=== PATIENT | female | born 1960 | race Caucasian/White ===

== ENCOUNTER 2019-04-16 10:47 | Emergency (ER) | payer OTHER ==
[~2019-04-16] VITALS: Ht 162.6 cm; Wt 61.2 kg
--- OUTSIDE RECORDS SUMMARY | 2019-04-16 10:50 | XMS REPORT | Clinical Summary ---
Author Author [facility] Organization [facility] Address Unknown Phone Unavailable Care Team Providers [facility] Name Role Phone Mary Uriostegui MD PCP Allergies No Known Allergies Medications End Date Status Medication Sig Dispensed Refills Start Date Active citalopram (CeleXA) 40 MG Take 40 mg by 0 tablet mouth daily. Active pantoprazole (PROTONIX) Take 40 mg by 0 40 MG EC tablet mouth daily. Active fenofibric acid Take 130 mg 0 (FIBRICOR) 105 mg tablet by mouth daily. Active BREO ELLIPTA 200-25 INHALE ONE 12 mcg/dose blister with PUFF PO ONCE 9 device powder for DAILY inhalation Active ibuprofen (ADVIL,MOTRIN) Take 1 tablet 60 tablet 0 600 MG tablet (600 mg 9 total) by mouth 3 (three) times a day. For 2 weeks. Then three times daily as needed. 04/23/2019 Active HYDROcodone-acetaminophen 1-2 tab by 30 tablet 0 (NORCO) 5-325 mg per mouth every 4 9 tabletIndications: hours as Complete tear of left needed for rotator cuff pain. Max 6/day 04/27/2019 Active acetaminophen-codeine Take 1-2 30 tablet 0 (TYLENOL WITH CODEINE #3) tablets by 9 300-30 mg per tablet mouth every 8 (eight) hours as needed for moderate pain for up to 15 days. 06/29/2018 Discontinued ibuprofen (ADVIL,MOTRIN) Take 800 mg 0 800 MG tablet by mouth every 6 (six) hours as needed for mild pain. 07/02/2018 Discontinued HYDROcodone-acetaminophen Take 1 tablet 0 (NORCO) 10-325 mg per by mouth tablet every 6 (six) hours as needed for moderate pain. 07/02/2018 oxyCODone-acetaminophen 1-2 tablet PO 45 tablet 0 (PERCOCET) 7.5-325 mg per q 4 hours PRN 8 tablet severe pain after large rotator cuff tear. 07/16/2018 HYDROcodone-acetaminophen 1-2 tablets 60 tablet 0 (NORCO) 5-325 mg per every 6 hours 8 tablet by mouth as needed for severe pain. 08/19/2018 HYDROcodone-acetaminophen Take 1 tablet 45 tablet 0 (NORCO) 5-325 mg per by mouth 8 tablet every 4 (four) hours as needed for moderate pain for up to 30 days. Max Daily Amount: 6 tablets 03/25/2019 Discontinued HYDROcodone-acetaminophen TK 1 T PO TID 0 (NORCO) 10-325 mg per PRN P 9 tablet 04/08/2019 oxyCODone-acetaminophen 1-2 tablets 30 tablet 0 (PERCOCET) 5-325 mg per every 4 hours 9 tablet as needed for severe pain 04/06/2019 Discontinued HYDROcodone-acetaminophen 1-2 tab by 30 tablet 0 (NORCO) 5-325 mg per mouth every 4 9 tabletIndications: hours as Complete tear of left needed for rotator cuff pain. Max 6/day Active Problems Problem Noted Date Complete tear of left rotator cuff 04/08/2019 Acute pain of right knee 11/27/2018 History of arthroscopic surgery of shoulder 08/12/2018 Rupture of right proximal biceps tendon 06/04/2018 Impingement syndrome of right shoulder 06/04/2018 Complete tear of right rotator cuff 06/03/2018 Encounters Care Team Description Date Type Specialty Luciano Saavedra MA 04/12/2019 Telephone Orthopedic Surgery Luciano Saavedra MA 04/12/2019 Orders Only Orthopedic Surgery Anna Banks FNP Complete tear of left rotator cuff (Primary Dx) 04/08/2019 Office Visit Orthopedic Surgery Luciano Saavedra MA 04/07/2019 Telephone Orthopedic Surgery John Knowles Jr., MD Complete tear of left rotator cuff 04/06/2019 Orders Only Orthopedic Surgery Luciano Saavedra MA 03/29/2019 Telephone Orthopedic Surgery John Knowles Jr., MD Complete tear of left rotator cuff (Primary Dx) 03/29/2019 Orders Only Orthopedic Surgery Luciano Saavedra MA 03/28/2019 Telephone Orthopedic Surgery John Knowles Jr., MD ARTHROSCOPY, LEFT SHOULDER WITH REPAIR, ROTATOR CUFF, BICEP TENODESIS, labral DEBRIDEMENT, SAD 03/25/2019 Surgery Good Chi MD 03/25/2019 Anesthesia Event John Knowles Jr., MD 03/25/2019 Hospital Encounter John Knowles Jr., MD 03/25/2019 Refill Orthopedic Surgery John Knowles Jr., MD Complete tear of left rotator cuff (Primary Dx); Tendinopathy of left biceps tendon 03/15/2019 Office Visit Orthopedic Surgery John Knowles Jr., MD Impingement syndrome of left shoulder 03/10/2019 Hospital Radiology Encounter John Knowles Jr., MD Left shoulder pain, unspecified chronicity (Primary Dx); Impingement syndrome of left shoulder 03/02/2019 Office Visit Orthopedic Surgery Hasmukh Chavez MD 02/28/2019 Hospital Radiology Encounter Hasmukh Chavez MD 02/28/2019 Hospital Radiology Encounter Hasmukh Chavez MD Osteoarthritis of lumbar spine, unspecified spinal osteoarthritis complication status (Primary Dx); Hip flexor tendinitis, right 02/28/2019 Office Visit Orthopedic Surgery Melina Alvarez MA Pain (Primary Dx) 02/24/2019 Orders Only Orthopedic Surgery John Knowles Jr., MD Complete tear of right rotator cuff (Primary Dx); Acute pain of right knee 11/17/2018 Office Visit Orthopedic Surgery John Knowles Jr., MD Rupture of right proximal biceps tendon, subsequent encounter (Primary Dx); Complete tear of right rotator cuff; History of arthroscopic surgery of shoulder 09/22/2018 Office Visit Orthopedic Surgery John Knowles Jr., MD Tear of right rotator cuff, unspecified tear extent (Primary Dx); 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, subsequent encounter 09/07/2018 Transcribe Physical Therapy Orders John Knowles Jr., MD 08/17/2018 Telephone Orthopedic Surgery John Knowles Jr., MD Palafox-Chua, Erica Renee, FNP History of arthroscopic surgery of shoulder (Primary Dx) 08/12/2018 Office Visit Orthopedic Surgery QuentinRogeliomark, KATERINA 07/20/2018 Telephone Orthopedic Surgery Quentin Luciano, KATERINA 07/20/2018 Orders Only Orthopedic Surgery John Knowles Jr., MD 07/20/2018 Orders Only Orthopedic Surgery Saavedra Luciano, KATERINA 07/19/2018 Telephone Orthopedic Surgery Jocelyn Anna ChristyCLARK Tear of right rotator cuff, unspecified tear extent (Primary Dx); Amputation of right upper extremity at shoulder, subsequent encounter 07/16/2018 Office Visit Orthopedic Surgery Rogelio Saavedramark, KATERINA 07/13/2018 Telephone Orthopedic Surgery Saavedra Luciano, KATERINA 07/07/2018 Telephone Orthopedic Surgery Quentin Luciano, KATERINA 07/06/2018 Telephone Orthopedic Surgery SaavedraRogeliomark, KATERINA 07/05/2018 Telephone Orthopedic Surgery Jenn Escobar MD 07/02/2018 Anesthesia Event John Knowles Jr., MD RIGHT SHOULDER ARTHROSCOPY, ROTATOR CUFF REPAIR, DEBRIDEMENT, SUBACROMIAL DECOMPRESSION, [place] 07/02/2018 Surgery John Knowles Jr., MD 07/02/2018 Hospital Encounter Lottie Delaney MA 06/01/2018 Telephone Orthopedic Surgery Polo Orona MD Arthritis of carpometacarpal (CMC) joint of left thumb (Primary Dx) 05/31/2018 Office Visit Ortho Sports Medicine Lottie Delaney MA 05/29/2018 Telephone Orthopedic Surgery Hasmukh Chavez MD 05/28/2018 Hospital Radiology Encounter Good Shetty MA Hand pain, left (Primary Dx) 05/28/2018 Orders Only Ortho Sports Medicine John Knowles Jr., MD Complete tear of right rotator cuff (Primary Dx); Impingement syndrome of right shoulder; Rupture of right proximal biceps tendon, initial encounter 05/26/2018 Office Visit Orthopedic Surgery Hasmukh Chavez MD Serrato, Juan Antonio Jr., MD Complete tear of right rotator cuff (Primary Dx); Impingement syndrome of shoulder, right; Biceps tendinitis of right upper extremity 05/26/2018 Office Visit Orthopedic Surgery Nicki Sage MA Right shoulder pain, unspecified chronicity (Primary Dx) 05/25/2018 Orders Only Orthopedic Surgery after 04/15/2018 Family History Medical History Relation Name Comments Cancer Father Atrial fibrillation Mother Heart disease Mother Relation Name Status Comments Father head and neck cancer Mother Alive Social History Date Tobacco Use Types Packs/Day Years Used Never Smoker Smokeless Tobacco: Never Used Alcohol Use Drinks/Week oz/Week Comments No Sex Assigned at Date Recorded Not on file Industry Job Start Date Occupation Not on file Not on file Not on file Travel End Travel History Travel Start No recent travel history available. Last Filed Vital Signs Time Taken Vital Sign Reading 04/08/2019 1:59 PM CDT Blood Pressure 133/67 04/08/2019 1:59 PM CDT Pulse 83 03/25/2019 12:47 PM CDT Temperature 36.8 C (98.3 F) 03/25/2019 1:30 PM CDT Respiratory Rate 15 03/25/2019 1:30 PM CDT Oxygen Saturation 92% - Inhaled Oxygen - Concentration 04/08/2019 1:59 PM CDT Weight 61.2 kg (135 lb) 04/08/2019 1:59 PM CDT Height 162.6 cm (5' 4") 04/08/2019 1:59 PM CDT Body Mass Index 23.17 Plan of Treatment Care Team Description Date Type Specialty John Knowles Jr., MD [address] [facility] [address] [place] [address] [phone] Antonietta Valente, PT 04/19/2019 Office Visit Physical Therapy Antonietta Valente, PT 04/21/2019 Office Visit Physical Therapy Elen Ibarra, CLAMPER 04/26/2019 Office Visit Physical Therapy Antonietta Valente, PT 04/28/2019 Office Visit Physical Therapy Antonietta Valente, PT 05/03/2019 Office Visit Physical Therapy John Knowles Jr., MD [address] [facility] [address] [place] [address] [phone] 05/04/2019 Office Visit Orthopedic Surgery Antonietta Valente, PT 05/05/2019 Office Visit Physical Therapy Antonietta Valente, PT 05/10/2019 Office Visit Physical Therapy Antonietta Valente, PT 05/12/2019 Office Visit Physical Therapy Antonietta Valente, PT 05/17/2019 Office Visit Physical Therapy Antonietta Valente, PT 05/19/2019 Office Visit Physical Therapy Antonietta Valente PT 05/24/2019 Office Visit Physical Therapy Health Maintenance Due Date Last Done Comments BREAST CANCER SCREENING 2008 COLONOSCOPY SCREENING 2008 SHINGLES VACCINES (#1) 2008 INFLUENZA VACCINE 05/12/2019 Implants Device Identifier Shelf Expiration Date Model / Serial / Lot Implanted Type Area Manufactur er 01/09/2021 [id number] / / [id number] Suture Holman Healix Knotless Br Orthopedic Right: Shoulder DEPUY Biocomposite 4.75mm - [id number] Trauma MITEK Implanted: 07/02/2018 (Quantity not Implants on file) 03/11/2021 [id number] / / [id number] Holman Sut Healix Advance Br W/ Orthopedic Right: Shoulder DEPUY Orthocord 4.5mm - [id number] Trauma MITEK Implanted: 07/02/2018 (Quantity not Implants on file) 03/11/2021 [id number] / / [id number] Holman Sut Healix Advance Br W/ Orthopedic Right: Shoulder DEPUY Orthocord 4.5mm - [id number] Trauma MITEK Implanted: 07/02/2018 (Quantity not Implants on file) 02/08/2021 [id number] / / [id number] Suture Holman Healix Knotless Br Orthopedic Right: Shoulder DEPUY Biocomposite 4.75mm - [id number] Trauma MITEK Implanted: 07/02/2018 (Quantity not Implants on file) 02/08/2021 [id number] / / [id number] Suture Holman [employer]ix Knotless Br Orthopedic Right: Shoulder DEPUY Biocomposite 4.75mm - [id number] Trauma MITEK Implanted: 07/02/2018 (Quantity not Implants on file) 10/11/2021 [id number] / / [id number] Suture Holman He[employer]ix Knotless Br Orthopedic Left: Shoulder DEPUY Biocomposite 4.75mm - [id number] Trauma MITEK Implanted: 03/25/2019 (Quantity not Implants on file) 09/10/2021 [id number] / / [id number] Holman Sut Healix Advance Br W/ Orthopedic Left: Shoulder DEPUY Orthocord 4.5mm - [id number] Trauma MITEK Implanted: 03/25/2019 (Quantity not Implants on file) 09/10/2021 [id number] / / [id number] Holman Sut Healix Advance Br W/ Orthopedic Left: Shoulder DEPUY Orthocord 4.5mm - [id number] Trauma MITEK Implanted: 03/25/2019 (Quantity not Implants on file) Procedures Comments Procedure Name Priority Date/Time Associated Diagnosis ARTHROSCOPY, SHOULDER 03/25/2019 Complete rotator cuff WITH REPAIR, ROTATOR 10:55 AM CDT tear CUFF, OPEN Glenoid labrum tear Biceps tendon tear Impingement syndrome of left shoulder Special Needs MITEK ANCHORS PROKNOTS BE[place] CHAIR,T-MA X AAKASH WITH MITEK NOTIFIED OF CASE ON 03/25 @1055..HJ [place] AN PERIPHERAL BLOCK Routine 03/25/2019 POST-OP PAIN 10:25 AM CDT Procedure Note - Good Chi MD - 03/25/2019 10:25 AM CDT Peripheral Block Date/Time: 03/25/2019 10:42 AM Performed by: Good Chi MD Authorized by: Good Chi MD Patient Location: Holding area Reason for Block: at surgeon's request, post-op pain management Staff: Anesthesio logist: Good Chi MD Performed by: Anesthesio logist Preprocedu re: patient identified , IV checked, site and side verified, risks and benefits discussed, procedure verified, surgical consent complete, patient position confirmed, monitors and equipment checked, pre-op evaluation complete, site marked and coagulatio n status reviewed Time Out Performed: 03/25/2019 10:34 AM Peripheral Nerve Block: Patient Position: Supine Prep: ChloraPrep Monitoring : Blood pressure monitoring , continuous pulse oximetry and heart rate Block Type: Interscale ne Laterality : Left Injection Technique: Single injection Procedures : nerve stimulator Local Infiltrati on (See MAR for details): Lidocaine Loss of Twitch: 0.4 mA Needle: Needle Length: 2 in Assessment : Injection Assessment : Intermitte nt aspiration during local anesthetic administra tion and no symptoms of intraneura l/intraven ous injection Paresthesi a Pain: None Heart Rate Change: No Slow Fractionat ed Injection: Yes Block outcome: No apparent complicati ons, patient comfortabl e and patient tolerated procedure well Medication s Administer ed Ropivacain e 0.5 % PF (mL), 15 mL ECG 12-LEAD STAT 03/25/2019 9:27 AM CDT MRI SHOULDER WO CONTRAST Routine 03/10/2019 Impingement syndrome of LEFT 11:25 AM CDT left shoulder XR SHOULDER 2+ VW LEFT Routine 03/02/2019 Left shoulder pain, 11:17 AM CDT unspecified chronicity [place] AN PERIPHERAL BLOCK Routine 07/02/2018 PROCEDURE FOR PAIN 10:34 AM CDT Procedure Note - Jenn Escobar MD - 07/02/2018 10:34 AM CDT Peripheral Block Performed by: JENN ESCOBAR Authorized by: JENN ESCOBAR Start Time: 07/02/2018 9:35 AM End Time: 07/02/2018 9:45 AM Reason for Block: at surgeon's request, post-op pain management , procedure for pain Staff: Anesthesio logist: JENN ESCOBAR Performed by: Anesthesio logiscassia Preprocedu re: patient identified , IV checked, site and side verified, risks and benefits discussed, procedure verified, surgical consent complete, patient position confirmed, monitors and equipment checked, pre-op evaluation complete and site marked Time Out Performed: 07/02/2018 9:40 AM Peripheral Nerve Block: Patient Position: Supine Prep: ChloraPrep Monitoring : Blood pressure monitoring , continuous pulse oximetry and heart rate Block Type: Brachial plexus Laterality : Right Injection Technique: Single injection Procedures : ultrasound guided and nerve stimulator Ultrasound documentat ion: Not saved Local Infiltrati on (See MAR for details): Lidocaine Loss of Twitch: 1 mA Needle: Needle Type: Pajunk Needle Gauge: 21 G Needle Length: 4 in Assessment : Injection Assessment : Visualized needle/loc al anesthetic surroundin g nerve, visualized pertinent vascular structures and nerves, needle tip visualized at all times during injection of medication , intermitte nt aspiration during local anesthetic administra tion and no symptoms of intraneura l/intraven ous injection Paresthesi a Pain: None Heart Rate Change: No Slow Fractionat ed Injection: Yes Block outcome: No apparent complicati ons, patient comfortabl e and patient tolerated procedure well [place] PERIPHERAL BLOCK Routine 07/02/2018 POST-OP PAIN 10:34 AM CDT Procedure Note - Jenn Escobar MD - 07/02/2018 10:34 AM CDT Peripheral Block Performed by: JENN ESCOBAR Authorized by: JENN ESCOBAR Start Time: 07/02/2018 9:35 AM End Time: 07/02/2018 9:45 AM Reason for Block: at surgeon's request, post-op pain management , procedure for pain Staff: Jaceko logist: JENN ESCOBAR Performed by: Rodriguez king Preprocedu re: patient identified , IV checked, site and side verified, risks and benefits discussed, procedure verified, surgical consent complete, patient position confirmed, monitors and equipment checked, pre-op evaluation complete and site marked Time Out Performed: 07/02/2018 9:40 AM Peripheral Nerve Block: Patient Position: Supine Prep: ChloraPrep Monitoring : Blood pressure monitoring , continuous pulse oximetry and heart rate Block Type: Brachial plexus Laterality : Right Injection Technique: Single injection Procedures : ultrasound guided and nerve stimulator Ultrasound documentat ion: Not saved Local Infiltrati on (See MAR for details): Lidocaine Loss of Twitch: 1 mA Needle: Needle Type: Papatsyk Needle Gauge: 21 G Needle Length: 4 in Assessment : Injection Assessment : Visualized needle/loc al anesthetic surroundin g nerve, visualized pertinent vascular structures and nerves, needle tip visualized at all times during injection of medication , intermitte nt aspiration during local anesthetic administra tion and no symptoms of intraneura l/intraven ous injection Paresthesi a Pain: None Heart Rate Change: No Slow Fractionat ed Injection: Yes Block outcome: No apparent complicati ons, patient comfortabl e and patient tolerated procedure well [place] AN ELECTIVE Routine 07/02/2018 ENDOTRACHEAL AIRWAY 10:31 AM CDT Procedure Note - Jenn Escobar MD - 07/02/2018 10:31 AM CDT Airway Date/Time: 07/02/2018 10:10 AM Performed by: JENN ESCOBAR Authorized by: JENN ESCOBAR Location: OR Urgency: Elective Difficult Airway: No Anesthesio logist: JENN ESCOBAR Preoxygena celina with 100% O2: Yes C-spine Precaution s Maintained Throughout : Yes Mask Ventilatio n: Easy mask Final Airway Type: Endotrache al airway Final Endotrache al Airway: ETT Cuffed: Yes Technique Used: Direct laryngosco py Insertion Site: Oral Blade Type: [place] Laryngosco pe Blade/Vide olaryngosc ope Blade Size: 2 ETT Size (mm): 7.0 Cuff at minimum occlusion pressure: Yes Measured from: Gums ETT to Gums (cm): 23 Placement Verified by: CO2 detection, direct visualizat ion and equal breath sounds Laryngosco pic view: Grade I - full view of glottis Rapid Sequence Induction (RSI): No Modified RSI: No Number of Attempts at Approach: 1 REPAIR, ROTATOR CUFF, 07/02/2018 Rotator cuff tear ARTHROSCOPIC 9:50 AM CDT Labral tear of long head of biceps tendon, initial encounter Impingement syndrome of right shoulder Special Needs NEEDS MITEK ANCHORS AND PROKNOTS, BEACH CHAIR [employer] WITH MITEK AWARE 06/28/18 DCM HGB & HCT I-STAT Routine 07/02/2018 9:10 AM CDT XR HAND 3+ VW LEFT Routine 05/31/2018 Hand pain, left 1:06 PM CDT MRI UPPER EXTREMITY Routine 05/06/2018 EXTERNAL STUDY 10:18 AM CDT after 04/15/2018 Results * ECG 12 lead (03/25/2019 9:27 AM CDT) Ventricular 57 [facility] rate Atrial rate 57 [facility] [place] interval 172 [facility] QRSD interval 86 [facility] QT interval 460 [facility] QTC interval 447 [facility] P axis 1 70 [facility] QRS axis 1 66 [facility] T wave axis 41 [facility] EKG impression Sinus bradycardia-Otherwise [facility] normal ECG-No previous ECGs available- Specimen Narrative Performed At Performing Organization Address City/State/Zipcode Phone Number [facility] [address] [place] [address] * MRI Shoulder Wo Contrast Left (03/10/2019 11:25 AM CDT) Specimen Narrative Performed At EXAMINATION:MRI SHOULDER WO CONTRAST LEFT [facility] CLINICAL HISTORY:M75.42 Impingement syndrome of left shoulder, impingement TECHNIQUE:Multiplanar multisequence MR imaging of the shoulder was performed without contrast. COMPARISON:Shoulder radiographs dated 03/02/2019 FINDINGS: Motion degraded examination. 1. Rotator cuff: Full-thickness near full width tear of the supraspinatus footprint with retraction of the torn tendon fibers with differential fiber retraction. The bursal surface fibers are retracted medially by approximately 1.2 cm whereas the undersurface articular sided fibers are retracted medially by approximately 2.7 cm as best seen on series 7, image 9. Diffuse infraspinatus tendinosis without evidence of a tear. Marked subscapularis tendinosis with partial-thickness tearing involving greater than 50% of the superior subscapularis footprint. 2. Bursa: Moderate to large amount of fluid in the subacromial subdeltoid bursa. 3. Biceps tendon: Medial subluxation of the biceps tendon from the bicipital groove with partial-thickness tearing of the vertical and horizontal segments of the biceps tendon. 4. Labrum: Degenerative tear of the superior labrum extending anteriorly and posteriorly relative to the biceps anchor. There is no definite tear of the anteroinferior labral ligamentous complex, posterior, or inferior labrum. 5. Acromioclavicular joint: Type II acromion process. Mild to moderate acromioclavicular osteoarthrosis. 6. Glenohumeral joint: Intact. Satisfactory alignment. Osseous glenoid intact. 7. Articular cartilage: No significant glenohumeral osteoarthrosis. There is no evidence of high-grade chondromalacia of the humeral head or glenoid cartilage. 8. Joint Fluid:Small to moderate joint effusion with prominent fluid and synovitis in the axillary recess posteriorly. There is no evidence of an intra-articular body. 9. Bone marrow: Minimal cystic change of the greater tuberosity. No suspicious marrow edema. Patchy red marrow is noted. 10. Soft tissues: No significant rotator cuff edema or atrophy. IMPRESSION: 1.Full-thickness tear of the supraspinatus footprint with retraction of the torn tendon as detailed above. 2.High-grade partial-thickness tearing of the superior subscapularis footprint. 3.Biceps instability with medial subluxation of the biceps tendon from the bicipital groove with degenerative partial tearing of the vertical and horizontal segments. 4.Degenerative superior labral tear extending anteriorly and posteriorly relative to the biceps anchor. 5.Mild acromioclavicular osteoarthrosis. 6.No significant glenohumeral osteoarthrosis or rotator cuff atrophy. 7.Additional findings and details as above. [id number] Procedure Note Hm Interface, Radiology Results Incoming - 03/10/2019 11:38 AM CDT EXAMINATION: MRI SHOULDER WO CONTRAST LEFT CLINICAL HISTORY: M75.42 Impingement syndrome of left shoulder, impingement TECHNIQUE: Multiplanar multisequence MR imaging of the shoulder was performed without contrast. COMPARISON: Shoulder radiographs dated 03/02/2019 FINDINGS: Motion degraded examination. 1. Rotator cuff: Full-thickness near full width tear of the supraspinatus footprint with retraction of the torn tendon fibers with differential fiber retraction. The bursal surface fibers are retracted medially by approximately 1.2 cm whereas the undersurface articular sided fibers are retracted medially by approximately 2.7 cm as best seen on series 7, image 9. Diffuse infraspinatus tendinosis without evidence of a tear. Marked subscapularis tendinosis with partial-thickness tearing involving greater than 50% of the superior subscapularis footprint. 2. Bursa: Moderate to large amount of fluid in the subacromial subdeltoid bursa. 3. Biceps tendon: Medial subluxation of the biceps tendon from the bicipital groove with partial-thickness tearing of the vertical and horizontal segments of the biceps tendon. 4. Labrum: Degenerative tear of the superior labrum extending anteriorly and posteriorly relative to the biceps anchor. There is no definite tear of the anteroinferior labral ligamentous complex, posterior, or inferior labrum. 5. Acromioclavicular joint: Type II acromion process. Mild to moderate acromioclavicular osteoarthrosis. 6. Glenohumeral joint: Intact. Satisfactory alignment. Osseous glenoid intact. 7. Articular cartilage: No significant glenohumeral osteoarthrosis. There is no evidence of high-grade chondromalacia of the humeral head or glenoid cartilage. 8. Joint Fluid:Small to moderate joint effusion with prominent fluid and synovitis in the axillary recess posteriorly. There is no evidence of an intra-articular body. 9. Bone marrow: Minimal cystic change of the greater tuberosity. No suspicious marrow edema. Patchy red marrow is noted. 10. Soft tissues: No significant rotator cuff edema or atrophy. IMPRESSION: 1. Full-thickness tear of the supraspinatus footprint with retraction of the torn tendon as detailed above. 2. High-grade partial-thickness tearing of the superior subscapularis footprint. 3. Biceps instability with medial subluxation of the biceps tendon from the bicipital groove with degenerative partial tearing of the vertical and horizontal segments. 4. Degenerative superior labral tear extending anteriorly and posteriorly relative to the biceps anchor. 5. Mild acromioclavicular osteoarthrosis. 6. No significant glenohumeral osteoarthrosis or rotator cuff atrophy. 7. Additional findings and details as above. [facility]-[id number] Performing Organization Address [facility] Hospital[facility] Phone Number [facility] [address] [place] [address] * XR Shoulder 2+ Vw Left (03/02/2019 11:17 AM CDT) Specimen Impressions Performed At Negative shoulder. [facility] Narrative Performed At [facility] FINDINGS: LEFT shoulder. The bones are intact and anatomically aligned. The acromioclavicular and glenohumeral joints appear normal. The bones, joints, and soft tissues appear normal. The visualized lung is clear. Performing Organization Address [facility] HospitalDiversied Arts And Entertainmentde Phone Number [facility] [employer] [address] [place] [address] * HGB & HCT I-Stat (07/02/2018 9:10 AM CDT) Hematocrit, 37.0Comment: Test performed by 36.0 - 50.0 % [facility] whole blood [id number] DEPARTMENT OF PATHOLOGY AND GENOMIC MEDICINE Hemoglobin, 12.6 11.0 - 15.0 g/dL [facility] whole blood DEPARTMENT OF PATHOLOGY AND GENOMIC MEDICINE Specimen Plasma specimen Performing Organization Address [facility]/Zipcode Phone Number [address] [place] [phone] PATHOLOGY AND GENOMIC MEDICINE * XR Hand 3+ Vw Left (05/31/2018 1:06 PM CDT) Specimen Narrative Performed At [facility] Xrays: The x-rays were ordered and personally reviewed by me. 3 views of the left hand Reason for exam: Left thumb weakness Impression: Evidence of left hand trapeziectomy with tight rope in place Performing Organization Address [facility]/Zipcode Phone Number [facility] [address] [address] [place] [address] * MRI Upper Extremity External Study (05/06/2018 10:18 AM CDT) Specimen Narrative Performed At This exam was not acquired at a [facility] facility and has not been [facility] interpreted by a [facility] Provider.The exam was imported into our imaging system for comparisons purposes. Performing Organization Address City/State/Zipcode Phone Number [facility] [address] [place] [address] after 04/15/2018 Insurance Type Payer Benefit Subscriber ID Effective Phone Address Plan / Dates Group HMO/PPO [facility] xxxxxxxxx 2018- [employer] Present CHOICE/CHO ICE + Advance Directives Patient has advance care planning documents on file. For more information, dylan cook contact: Lyle Dorsey [address] [place] [address]
[2019-04-16] MEDS ORDERED: SODIUM CHLORIDE 0.9% 1000ML 1,000 ML IV STA (11:15)
[2019-04-16 11:35] LABS: BASOPHILS # (AUTO) 0.1 (0.0-0.1); BASOPHILS % 0.3 % (0.0-1.0); EOSINOPHILS # (AUTO) 0.2 (0.0-0.4); EOSINOPHILS % 1.3 % (0.0-6.0); HEMATOCRIT 37.4 % (34.2-44.1); HEMOGLOBIN 12.8 g/dL (12.0-16.0); LYMPHOCYTES # (AUTO) 1.3 (1.0-3.2); LYMPHOCYTES % 7.3 % (18.0-39.1); MEAN CORPUSCULAR HEMOGLOBIN 31.4 pg (28-32); MEAN CORPUSCULAR HGB CONC 34.2 g/dL (31-35); MEAN CORPUSCULAR VOLUME 91.7 fL (81-99); MONOCYTES # (AUTO) 1.2 (0.2-0.8); MONOCYTES % 7.1 % (4.4-11.3); NEUTROPHILS # (AUTO) 14.3 (2.1-6.9); NEUTROPHILS % 83.5 % (38.7-80.0); PLATELET COUNT 355 x10e3/uL (140-360); RED BLOOD COUNT 4.08 x10e6/uL (3.6-5.1); RED CELL DISTRIBUTION WIDTH 13.4 % (11.7-14.4)
[2019-04-16 11:46] LABS: INR 0.77; PROTHROMBIN TIME 11.2 seconds (11.9-14.5)
[2019-04-16 11:47] LABS: PARTIAL THROMBOPLASTIN TIME 28.7 seconds (23.8-35.5)
[2019-04-16 11:56] LABS: ALANINE AMINOTRANSFERASE 13 IU/L (0-55); ALBUMIN 3.9 g/dL (3.5-5.0); ALBUMIN/GLOBULIN RATIO 1.4 (0.8-2.0); ALKALINE PHOSPHATASE 56 IU/L (40-150); ANION GAP 17.2 mmol/L (8-16); BLOOD UREA NITROGEN 15 mg/dL (7-26); BUN/CREATININE RATIO 21 (6-25); CALCIUM 9.2 mg/dL (8.4-10.2); CARBON DIOXIDE 18 mmol/L (22-29); CHLORIDE 108 mmol/L (98-107); CREATINE KINASE 125 IU/L (29-168); CREATININE, SERUM 0.72 mg/dL (0.57-1.11); EST GLOMERULAR FILTRATION RATE > 60 ML/MIN (60-); GLUCOSE 111 mg/dL (74-118); POTASSIUM 3.2 mmol/L (3.5-5.1); SODIUM 140 mmol/L (136-145)
[2019-04-16] MEDS ORDERED: ONDANSETRON HCL INJ 2MG/ML 2ML 2 MG/ML VIAL IV ONE (12:00)
--- NOTE | 2019-04-16 12:05 | Diagnostic Imaging Report ---
EXAMINATION: CHEST SINGLE (PORTABLE) INDICATION: ^SOB ^[id number] ^1130 COMPARISON: None FINDINGS: AP view TUBES and LINES: None. LUNGS: Lungs are well inflated. There is no evidence of pneumonia or pulmonary edema. PLEURA: No pleural effusion or pneumothorax. HEART AND MEDIASTINUM: The cardiomediastinal silhouette is unremarkable. BONES AND SOFT TISSUES: No acute osseous lesion. Soft tissues are unremarkable. UPPER ABDOMEN: No free air under the diaphragm. IMPRESSION: No acute thoracic abnormality. Signed by: Dr. Jose Miguel Hackett MD on 04/16/2019 12:01 PM
[2019-04-16] MEDS ORDERED: IOPAMIDOL 370 MG/ML 200 ML INFUS..BTL INJ ONE (12:20)
[2019-04-16] MEDS ORDERED: SODIUM CHLORIDE 0.9% 50ML 50 ML ONE (12:20)
--- NOTE | 2019-04-16 13:32 | Diagnostic Imaging Report ---
EXAM: CT Chest WITH contrast (PE Protocol) INDICATION: ^PE PROTOCOL ^[id number] ^1240 ^N COMPARISON: Same day chest x-ray TECHNIQUE: Chest was scanned utilizing a multidetector helical scanner from the lung apex through the level of the diaphragm after administration of IV contrast. Thin section reconstructions were obtained with special concentration on the pulmonary arteries. Coronal and sagittal reformations were obtained. Dose modulation, iterative reconstruction, and/or weight based adjustment of the mA/kV was utilized to reduce the radiation dose to as low as reasonably achievable. Pulmonary embolism protocol was performed. IV CONTRAST: 100 mL of Isovue-370 COMPLICATIONS: None [facility] DOSE: Total DLP: 523.77 mGy*cm Estimated effective dose: (DLP x 0.014 x size factor) mSv CTDIvol has been reviewed. It is below the limits set by the Radiation Protocol Committee (RPC). FINDINGS: LINES/ TUBES: None. LUNGS AND AIRWAYS: No filling defect is identified within the pulmonary arteries to the segmental level. Bibasilar atelectasis. 4 mm left lower lobe nodule (series 3, image 89). 6 mm right middle lobe nodule. 4 mm right lower lobe nodule (3/81). 5 mm right lower lobe nodule (series 2, image 86). Anterior right middle lobe scarring versus spiculated nodules (series 3, image 80).. Mild nonobstructed mucous plugging is seen in the right lower lobe subsegmental airway branches. PLEURA: The pleural spaces are clear. HEART AND MEDIASTINUM: The thyroid gland is normal. No mediastinal, hilar or axillary lymphadenopathy. The heart is normal in size.. There is no pericardial effusion. . Main pulmonary artery measures 2.5 cm in diameter and the ascending aorta measures 3.1 cm. Atherosclerotic calcification of LAD. UPPER ABDOMEN: Small hiatal hernia. Partially seen stomach wall thickening, likely due to underdistention. BONES: Mild thoracic scoliosis with multilevel degenerative changes. SOFT TISSUES: Unremarkable. IMPRESSION: No pulmonary emboli. Multiple lung nodules. Recommend follow-up with chest CT in 6 months to ensure stability. Mild nonobstructive mucous plugging in right lower lobe central subsegmental airways. Small hiatal hernia. Signed by: Dr. Jose Miguel Hackett MD on 04/16/2019 1:29 PM
[2019-04-16 13:55] VITALS: BP 108/88
== END 2019-04-16 14:01 | disposition home or self-care (01) ==
LOC: ER 10:47
DX: R11.2 Nausea with vomiting, unspecified (principal); R19.7 Diarrhea, unspecified; A08.4 Viral intestinal infection, unspecified; E86.0 Dehydration; E87.6 Hypokalemia; K52.9 Noninfective gastroenteritis and colitis, unspecified; K21.9 Gastro-esophageal reflux disease without esophagitis
CPT/HCPCS: 36415; 71045; 71260; 80053; 82550; 82553; 84484; 85025; 85379; 85610; 85730; 93005; 99284; J2405; J7030; Q9967